=== PATIENT | male | born 2005 | race Hispanic/Latino ===

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

== ENCOUNTER 2024-11-30 11:48 | Emergency (ER) | payer SELFPAY ==
[~2024-11-30] VITALS: Ht 165.1 cm; Wt 50.3 kg
[~2024-11-30 11:48] MED LIST: ONDA-243 PO
--- NOTE | 2024-11-30 11:55 | ERN ---
General Stated Complaint: NAUSEA,VOMITTING,MULTIPLE COMPLAINTS Time Seen by MD: 11:49 Source: patient, EMS History of Present Illness Initial Comments PATIENT IS A 19-YEAR-OLD MALE COMING IN TO BE EVALUATED FOR URI SYMPTOMS. PATIENT STATES THE SYMPTOMS BEGAN TWO DAYS AGO AND BEEN PROGRESSIVELY GETTING WORSE. SOME OF THE SYMPTOMS INCLUDE NASAL CONGESTION SORE THROAT AND BODY ACHES. Allergies: Coded Allergies: No Known Allergies (Unverified Allergy, Unknown, 02/05/22) Home Meds Active Scripts Ondansetron (Ondansetron Odt) 4 Mg Tab.rapdis, 4 MG PO TIDP PRN for VOMITING, #12 TAB 0 Refills Prov:XIMENA MYERS MD 02/05/22 Past Medical History Past Medical History: No Pertinent History Past Surgical History: None Social History Social History: Other ROS Dictation CONSTITUTIONAL: No chills, no fever, no weakness, no diaphoresis, no malaise. HEAD/FACE: No signs of trauma. EENT: No eye pain, no blurred vision, no tearing, no double vision, no ear pain, no ear discharge, no nose pain, no nasal congestion, no throat pain, no throat swelling, no mouth pain. RESPIRATORY: No cough, no orthopnea, no SOB, no stridor, no wheezing. CARDIOVASCULAR: No chest pain, no edema, no palpitations, no syncope. GASTROINTESTINAL/ABDOMINAL: abdominal pain, no constipation, no diarrhea, nausea, vomiting. GENITOURINARY: No abnormal discharge, no dysuria, no frequent urination, no he maturia. No complaints of pain in the genitals. MUSCULOSKELETAL: No back pain, no gout, no joint pain, no joint swelling, no m uscle pain, no muscle stiffness, no neck pain. INTEGUMENTARY: No change in color, no change in hair/nails, no dryness, no lesi on, no lumps, no rash. NEUROLOGICAL/PSYCH: No anxiety, not depressed, no emotional problem, no headache, no numbness, no pre-existing deficit, no history of seizures, no tremors, no weakness. HEMATOLOGIC/LYMPHATIC: Not anemic, no history of blood clots, no apparent bleeding, no bruising, glands not swollen. All Systems Negative, Except as Noted. Physical Exam Physical Exam Dictation VITAL SIGNS: Reviewed. GENERAL APPEARANCE: Alert, oriented x3, no acute distress, obese. HEAD AND FACE: Non-traumatic. EYES: PERRL, pink conjunctivas, eyelid no trauma, anterior chamber clear. EARS: Pinnas intact and no signs of trauma or erythema. Ear canals clear and no discharge. TMs no erythema. NOSE: No discharge, no bleeding. OROPHARYNX: Mouth normal, teeth no caries, tongue pink. Pharynx clear, no erythema. Tonsils no exudates, no abscesses noted. Mucous membrane moist. NECK: Supple, non-tender, no thyromegaly, no masses, no JVD, no bruits. BREAST: Deferred. CHEST: No tenderness, no crepitus, no paradoxical movement, no retractions. LUNGS: Clear, well-ventilated, symmetric, no rales, no wheezing, no rhonchi, no stridor, good breath sounds bilaterally. HEART: Regular rate, regular rhythm, no murmur, no gallops. VASCULAR: No peripheral edema. ABDOMEN: Soft, positive bowel sounds, nondistended, no guarding, generalized abdominal tenderness, no rebound, no masses no hepatomegaly, no splenomegaly, no Lord's sign, no hernias. RECTAL: Deferred. GENITAL: Deferred. NEUROLOGICAL: Normal speech, gross motor function intact, gross sensory function intact. MUSCULOSKELETAL: Neck nontender, full range of motion, back nontender, full range of motion. EXTREMITIES: Nontender, full range of motion. SKIN: Color pink, dry, no turgor, no rash, no lacerations, no abrasions, no contusions. LYMPHATICS: Deferred. Results Laboratory and Microbiology Lab and Micro Result Laboratory Tests Test 11/30/24 12:10 11/30/24 13:01 11/30/24 13:14 White Blood Count 8.2 K/uL (4.8-10.8) Red Blood Count 4.70 MIL/uL (4.50-6.20) Hemoglobin 15.3 g/dL (14.0-18.0) Hematocrit 44.7 % (42-54) Mean Corpuscular Volume 95.1 fL (80-100) Mean Corpuscular Hemoglobin 32.6 pg (27.0-33.0) Mean Corpuscular Hemoglobin Concent 34.2 g/dL (32.0-36.0) Red Cell Distribution Width 12.6 % (11.0-15.5) Platelet Count 211 K/uL (130-400) Mean Platelet Volume 9.2 fL (7.5-10.5) Immature Granulocyte % (Auto) 0.4 % (0-1) Neutrophils (%) (Auto) 77.2 % (40.0-77.0) H Lymphocytes (%) (Auto) 8.4 % (21.0-51.0) L Monocytes (%) (Auto) 13.8 % (3.0-13.0) H Eosinophils (%) (Auto) 0.0 % (0.0-8.0) Basophils (%) (Auto) 0.2 % (0.0-5.0) Neutrophils # (Auto) 6.3 K/uL (1.8-7.7) Lymphocytes # (Auto) 0.7 K/uL (1.0-4.8) L Monocytes # (Auto) 1.1 K/uL (0.1-1.0) H Eosinophils # (Auto) 0.00 K/uL (0.00-0.70) Basophils # (Auto) 0.02 K/uL (0.00-0.20) Absolute Immature Granulocyte (auto 0.03 K/uL (0-1) Nucleated Red Blood Cells 0.0 % (0.0-0.19) White Cell Morphology Comment See comments Sodium Level 136 mmol/L (136-145) Potassium Level 3.4 mmol/L (3.5-5.1) L Chloride Level 100 mmol/L (101-111) L Carbon Dioxide Level 32 mmol/L (21-32) Blood Urea Nitrogen 6 mg/dL (7-18) L Creatinine 1.0 mg/dL (0.5-1.3) Glomerular Filtration Rate Calc 110 mL/min (>90) Random Glucose 89 mg/dL (70-105) Total Calcium 8.9 mg/dL (8.5-10.1) Total Bilirubin 0.9 mg/dL (0.2-1.0) Aspartate Amino Transf (AST/SGOT) 16 U/L (10-37) Alanine Aminotransferase (ALT/SGPT) 19 U/L (12-78) Alkaline Phosphatase 60 U/L (50-136) Total Creatine Kinase 93 U/L (21-232) Total Protein 7.7 g/dL (6.0-8.3) Albumin 4.1 g/dL (3.5-5.0) Lipase 22 U/L (16-77) Influenza Type A Antigen Positive For Type A Influenza Type B Antigen Negative For Type B SARS-CoV-2, RNA, NAAT NEGATIVE SARS CoV-2 Group A Streptococcus Rapid negative (NEGATIVE) Urine Opiates Screen NEGATIVE (NEGATIVE) Urine Barbiturates Screen NEGATIVE (NEGATIVE) Urine Phencyclidine Screen NEGATIVE (NEGATIVE) Urine Amphetamines Screen NEGATIVE (NEGATIVE) Urine Benzodiazepines Screen NEGATIVE (NEGATIVE) Urine Cocaine Screen NEGATIVE (NEGATIVE) Urine Marijuana (THC) Screen NEGATIVE (NEGATIVE) Labs Reviewed?: Yes MDM MDM: DIFFERENTIAL DIAGNOSIS: URI, COVID, FLU, GASTROENTERITIS, PATIENT IS A 19-YEAR-OLD GENTLEMAN COMING IN TO BE EVALUATED FOR URI SYMPTOMS. SOME OF THE SYMPTOMS INCLUDE NASAL CONGESTION SORE THROAT EARACHES AND BODY ACHES. LABORATORY POSITIVE FOR INFLUENZA A. PATIENT WILL BE DISCHARGED IN STABLE CONDITION WITH A DIAGNOSIS OF INFLUENZA A TAMIFLU WILL BE PROVIDED I ADVISED HIM APPROPRIATE FOLLOW UP WITH PCP IN 1-2 DAYS FOR ONGOING EVALUATION. THROUGHOUT ER VISIT PATIENT HAS BEEN STABLE ED Course Orders Procedure Category Date Status Time Cbc With Differential LAB 11/30/24 Complete 11:52 Comprehensive LAB 11/30/24 Complete Metabolic Panel 11:52 Lactated Ringers PHA 11/30/24 Complete 1000ml (Lactated 12:00 Ondansetron 4mg Inj PHA 11/30/24 Complete (Zofran 4mg Inj) 12:00 Pantoprazole 40mg Inj PHA 11/30/24 Complete (Protonix 40mg Inj 12:00 Lipase LAB 11/30/24 Complete 11:52 Creatine Kinase, Total LAB 11/30/24 Complete 11:52 Drug Screen Urine LAB 11/30/24 Complete 11:52 Covid Rna Naat LAB 11/30/24 Complete 12:51 Influenza Type A & B, LAB 11/30/24 Complete Rapid 12:51 Rapid (Group A Strep) LAB 11/30/24 Complete 12:51 Current Medications Medications (Trade) Dose Ordered Sig/Tolu Route PRN Reason Start Time Stop Time Status Last Admin Dose Admin Lactated Ringer's 1,000 ml @ 0 mls/hr ONCE ONCE IV 11/30/24 12:00 11/30/24 12:51 DC Ondansetron HCl (zoFRAN 4MG INJ) 4 mg ONCE ONCE IVP 11/30/24 12:00 11/30/24 12:51 DC Pantoprazole Sodium (PROTonix 40MG INJ) 40 mg ONCE ONCE IVP 11/30/24 12:00 11/30/24 12:51 DC Vital Signs Date Time Temp Pulse Resp B/P (MAP) Pulse Ox O2 Delivery O2 Flow Rate FiO2 11/30/24 12:56 99.3 94 18 120/61 99 0 DX & DISP Disposition: Discharge Departure Impression: Primary Impression: Influenza A Condition: Stable Scripts Acetaminophen (Tylenol) 500 Mg Tab 1 TAB PO Q6HPRN PRN for pain or fever for 5 Days, #30 TAB 0 Refills Prov: LORETO CARVAJAL MD 11/30/24 Oseltamivir Phosphate (Tamiflu) 75 Mg Cap 1 CAP PO BID for 5 Days, #10 CAP 0 Refills Prov: LORETO CARVAJAL MD 11/30/24 Additional Instructions: FOLLOW-UP WITH PRIMARY CARE PROVIDER IN 1 TO 2 DAYS. TAKE MEDICATIONS DIRECTED HERE IN THE EMERGENCY ROOM. OKAY TO CONTINUE HOME MEDICATIONS UNLESS OTHERWISE DISCUSSED DURING YOUR VISIT IN THE EMERGENCY ROOM TODAY. RETURN TO YOUR NEAREST EMERGENCY ROOM IF SYMPTOMS WORSEN OR IF THERE IS NO IMPROVEMENT. CALL 911 IF YOU NEED IMMEDIATE ASSISTANCE. TAKE TYLENOL [id number] NEEDED AND IF NO CONTRAINDICATIONS ARE PRESENT. INCREASE ORAL HYDRATION. A WOU ND CULTURE OR URINE CULTURE WAS ORDERED HERE IN THE EMERGENCY ROOM DEPARTMENT PLEASE FOLLOW-UP WITH PRIMARY CARE PROVIDER AND ADVISE THEM TO GET REPEAT PORTS FROM OUR FACILITY. IF YOU HAD ANY TIFFANIE WRAP/SPLINTS THAT WERE APPLIED HERE, PLEASE DO NOT REMOVE THEM UNTIL YOU SEE YOUR PRIMARY CARE OR SPECIALTY. REFERRALS: Referrals: MCKENNA HERNANDEZ MD (PCP) Time of Disposition: 13:57 LORETO CARVAJAL MD Nov 30, 2024 11:55
[2024-11-30] MEDS ORDERED: ondanSETRON 4MG INJ IVP ONE (12:00)
[2024-11-30] MEDS ORDERED: PANTOPrazole 40 MG/VIAL IVP ONE (12:00)
[2024-11-30] MEDS ORDERED: LACTATED RINGERS 1000ML 1,000 ML IV ONE (12:00)
[2024-11-30 12:31] LABS: BASOPHILS # (AUTO) 0.02 K/uL (0.00-0.20); BASOPHILS % (AUTO) 0.2 % (0.0-5.0); HEMATOCRIT 44.7 % (42-54); IMMATURE GRANULOCYTE ABSOLUTE 0.03 K/uL (0-1); LYMPHOCYTES # (AUTO) 0.7 K/uL (1.0-4.8); LYMPHOCYTES % (AUTO) 8.4 % (21.0-51.0); MEAN CORPUSCULAR HEMOGLOBIN 32.6 pg (27.0-33.0); MEAN CORPUSCULAR HGB CONC 34.2 g/dL (32.0-36.0); MEAN CORPUSCULAR VOLUME 95.1 fL (80-100); MONOCYTES # (AUTO) 1.1 K/uL (0.1-1.0); MONOCYTES % (AUTO) 13.8 % (3.0-13.0); NEUTROPHILS # (AUTO) 6.3 K/uL (1.8-7.7); NEUTROPHILS % (AUTO) 77.2 % (40.0-77.0); PLATELET COUNT (AUTO) 211 K/uL (130-400); RED CELL DISTRIBUTION WIDTH 12.6 % (11.0-15.5); WHITE BLOOD COUNT (AUTO) 8.2 K/uL (4.8-10.8)
[2024-11-30 12:43] LABS: POTASSIUM 3.4 mmol/L (3.5-5.1)
[2024-11-30 12:48] LABS: ALBUMIN 4.1 g/dL (3.5-5.0); BILIRUBIN,TOTAL 0.9 mg/dL (0.2-1.0); TOTAL PROTEIN, SERUM 7.7 g/dL (6.0-8.3)
[2024-11-30 13:26] LABS: RAPID GROUP A STREP negative (NEGATIVE)
[2024-11-30 13:30] LABS: AMPHET/METH SCREEN,URINE NEGATIVE (NEGATIVE); BARBITURATE SCREEN, URINE NEGATIVE (NEGATIVE); BENZODIAZEPINES SCREEN,URINE NEGATIVE (NEGATIVE); CANNABINOID SCREEN,URINE NEGATIVE (NEGATIVE); COCAINE SCREEN,URINE NEGATIVE (NEGATIVE); OPIATE SCREEN,URINE NEGATIVE (NEGATIVE); PHENCYCLIDINE SCREEN,URINE NEGATIVE (NEGATIVE)
[2024-11-30 13:30] LABS: SARS-CoV-2, RNA, NAAT NEGATIVE SARS CoV-2 (NEGATIVE)
[2024-11-30 13:36] LABS: INFLUENZA TYPE B Negative For Type B (NEGATIVE)
[2024-11-30 13:52] LABS: INFLUENZA TYPE A Positive For Type A (NEGATIVE)
[2024-11-30] MEDS ORDERED: OSEL75 PO (13:58)
[2024-11-30] MEDS ORDERED: ACET-66 PO (13:58)
--- NOTE | 2024-11-30 14:08 | NUR ---
PT STILL I LOBBY
[2024-11-30 14:20] VITALS: BP 105/68; PULSE 103; RESP 17; TEMP 102.4; O2SAT 99
[2024-11-30] MEDS: ibuPROFEN 800 MG TAB PO ONE (14:33)
== END 2024-11-30 14:35 | disposition home or self-care (01) ==
LOC: EDH 11:48
DX: J10.1 Influenza due to other identified influenza virus with other respiratory manifestations (principal); Z20.822 Contact with and (suspected) exposure to COVID-19; Z79.899 Other long term (current) drug therapy
CPT/HCPCS: 36415; 80053; 80305; 82550; 83690; 85025; 87635; 87804; 87880; 99283